=== PATIENT | male | born 1975 | race Caucasian/White ===

== ENCOUNTER → 2020-12-03 06:23 | Outpatient (CLI) | payer OTHER, SELFPAY ==
--- NOTE | 2020-12-03 06:40 | MRI_ITS ---
STUDY: MRI LUMBAR SPINE WITHOUT CONTRAST REASON FOR EXAM: Male, 45 years old. DEGENERATIVE LUMBAR SPINAL STENOSIS TECHNIQUE: Standardized fat and water weighted pulse sequences were obtained in the sagittal and axial planes. COMPARISON: None FINDINGS: T11-T12: (Sagittal only). Normal endplates. Normal disc height, hydration and morphology. Normal central canal and bilateral intervertebral neural foramina. T12-L1: (Sagittal only). Normal endplates. Normal disc height, hydration and morphology. Normal central canal and bilateral intervertebral neural foramina. Normal lumbar lordosis. There is no substantial scoliosis. Normal conus medullaris that terminates at the mid T12 vertebral body level. L1-2: Normal endplates. Normal disc height, hydration and morphology. Normal bilateral facet joints. Normal central canal and bilateral lateral recesses. Normal bilateral intervertebral neural foramina. L2-3: Normal endplates. Normal disc height, hydration and morphology. Normal bilateral facet joints. Normal central canal and bilateral lateral recesses. Normal bilateral intervertebral neural foramina. L3-4: Normal endplates. Minimal disc space height narrowing. Small posterior annular bulging disc. Pronounced central canal stenosis with an AP canal diameter of 4.5 mm. This is secondary to developmentally short pedicles and prominent dorsal epidural lipomatosis. Mild bilateral degenerative facet arthropathy. Normal bilateral intervertebral neural foramina. L4-5: Normal endplates. Minimal disc space height narrowing. Small posterior annular fissure underneath the posterior annulus. Moderate central canal stenosis with an AP canal diameter of 7 mm. Mild dorsal epidural lipomatosis. Mild bilateral degenerative facet arthropathy. Normal bilateral intervertebral neural foramina. L5-S1: Normal endplates. Normal disc height, hydration and morphology. Mild bilateral degenerative facet arthropathy. Normal central canal and bilateral lateral recesses. Normal bilateral intervertebral neural foramina. Normal visualized sacral ala. Normal visualized paraspinous soft tissue structures. MRI/Spine Lumbar (Routine) IMPRESSION: 1. Pronounced central canal stenosis at L3-L4 disc space level with an AP canal diameter of 4.5 mm. This is secondary to developmentally short pedicles, prominent dorsal epidural lipomatosis and small posterior annular bulging disc. 2. Moderate central canal stenosis at L4-L5 disc space level with an AP canal diameter of 7 mm secondary to small posterior annular bulging disc, developmentally short pedicles and mild dorsal epidural lipomatosis. 3. No MRI evidence of lumbar extruded disc fragment. Electronically Signed: Jonathan Lucio MD at 16:10 EDT , Service support ,
== END ==
PROVIDERS: PCP Family Medicine; Referring Provider Nurse Practitioner Family; Visit Provider Nurse Practitioner Family
DX: M46.96 Unspecified inflammatory spondylopathy, lumbar region (principal); M51.37 Other intervertebral disc degeneration, lumbosacral region; M48.061 Spinal stenosis, lumbar region without neurogenic claudication; M54.17 Radiculopathy, lumbosacral region; M47.817 Spondylosis without myelopathy or radiculopathy, lumbosacral region
CPT/HCPCS: 72148

== ENCOUNTER → 2024-12-19 | Outpatient (CLI) | payer SELFPAY ==
--- NOTE | 2024-12-19 15:00 | MRI_ITS ---
EXAM: Noncontrast MRI of the lumbar spine. Clinical indication: CLINICAL HISTORY: Low back pain radiating into both legs for 14 years. No specific injury or prior lumbar spine surgery. COMPARISON: None available TECHNIQUE: Multiplanar, multisequence MRI images of the lumbar spine were obtained without IV contrast. FINDINGS: The study assumes a presence of 5 lumbar type, [id number] vertebral bodies. The lumbar vertebral bodies are normal in height and marrow signal. No acute lumbar vertebral body fracture or abnormal marrow replacement process. The conus terminates at T12-L1. The included lower spinal cord and lower thoracic intervertebral disc spaces are unremarkable. Grade 1 retrolisthesis of L3 relative to L4. The included portions of the sacrum and SI joints are intact. Included retroperitoneal and paraspinal soft tissues show no specific abnormality. L1-2: Mild disc bulge flattens the ventral thecal sac, without focal disc herniation, significant central spinal canal, or neural foraminal narrowing. Mild degenerative facet changes. L2-3: Mild disc bulge flattens the ventral thecal sac, without focal disc herniation or significant central spinal canal narrowing. Mild bilateral neural foraminal narrowing, greatest on the left. Mild degenerative facet changes. L3-4: A posterior broad-based disc protrusion, slightly asymmetric to the right causes severe central spinal canal and lateral recess narrowing, greatest on the right. Moderate bilateral neural foraminal narrowing and moderate degenerative facet changes. L4-5: Mild disc bulge flattens the ventral thecal sac, causing a mild degree of central spinal canal narrowing. There appears to be tiny posterior annular tear at this level. No focal disc herniation. [id number] bilateral neural foraminal narrowing, greatest on the right. Moderate degenerative facet changes. L5-S1: Minimal disc bulge without focal disc herniation or significant central spinal canal narrowing. Mild bilateral neural foraminal narrowing and degenerative facet changes. MRI/Spine Lumbar (Routine) IMPRESSION: No acute bony abnormality of the lumbar spine. Multilevel degenerative disc and facet disease in the lumbar spine as described level by level above. Findings are most significant at L3-4 where a posterior broad-based disc protrusion causes severe central spinal canal and lateral recess narrowing, slightly asymmetric to the right. Multilevel neural foraminal narrowing and degenerative facet changes as describ ed above. Reading Location: [facility]
== END | disposition home or self-care (01) ==
PROVIDERS: PCP Family Medicine; Referring Provider Anesthesiology Pain Medicine; Visit Provider Anesthesiology Pain Medicine
DX: M54.9 Dorsalgia, unspecified (principal); M79.604 Pain in right leg; M79.605 Pain in left leg
CPT/HCPCS: 72148